=== PATIENT | male | born 1955 | race Caucasian/White ===

== ENCOUNTER 2024-03-21 20:36 | Inpatient (IN) ==
[2024-03-21 21:00] LABS: Basophils # (Auto) 0.01 K/mcL (0.00-0.30); Basophils % (Auto) 0.1 % (0.0-2.0); Eosinophils # (Auto) 0 K/mcL (0.00-0.70); Eosinophils % (Auto) 0 % (0.0-7.0); Hematocrit 38.4 % (40.1-51.0); Hemoglobin 12.2 g/dL (13.7-17.5); Lymphocytes # (Auto) 0.22 K/mcL (1.50-4.80); Lymphocytes % (Auto) 1.8 % (15.5-49.0); Mean Cell Volume 90.1 fL (80.0-100.0); Mean Corpuscular HGB Conc 31.8 g/dL (31.0-36.0); Monocytes # (Auto) 0.28 K/mcL (0.10-0.90); Monocytes % (Auto) 2.3 % (1.0-12.0); Neutrophils % (Auto) 95.5 % (38.0-78.0); Platelet Count 169 K/mcL (140-440); RBC 4.26 M/mcL (4.63-6.08); Red Cell Distribution Width 15.5 % (11.5-14.5)
[2024-03-21] MEDS: 0.9 % SODIUM CHLORIDE 1,000 ML IV ONE (21:07)
[2024-03-21] MEDS: ONDANSETRON 4 MG/2 ML VIAL IV ONE (21:07)
[2024-03-21] MEDS: ACETAMINOPHEN 1,000 MG/100 ML BAG IV ONE (21:16)
[2024-03-21] MEDS ORDERED: ONDANSETRON 4 MG/2 ML VIAL IV PRN (23:42)
[2024-03-21] MEDS ORDERED: ALBUTEROL SULFATE 2.5 MG/3 ML NEBULIZER NEB PRN (23:42)
[2024-03-22] MEDS: AZITHROMYCIN 500 MG in 0.9 % SODIUM CHLORIDE 250 ML IV ONE (00:07)
[2024-03-22] MEDS: OSELTAMIVIR PHOSPHATE 75 MG CAPSULE PO ONE (00:08)
[2024-03-22] MEDS: cefTRIAXone 2 GM in DEXTROSE 5% IN WATER 50 ML IV SCH (00:08)
[2024-03-22 00:29] LABS: Basophils # (Auto) 0 K/mcL (0.00-0.30); Basophils % (Auto) 0 % (0.0-2.0); Eosinophils # (Auto) 0 K/mcL (0.00-0.70); Eosinophils % (Auto) 0 % (0.0-7.0); Hemoglobin 11.8 g/dL (13.7-17.5); Lymphocytes # (Auto) 0.32 K/mcL (1.50-4.80); Lymphocytes % (Auto) 2.8 % (15.5-49.0); Mean Cell Volume 90.7 fL (80.0-100.0); Mean Corpuscular HGB Conc 31.9 g/dL (31.0-36.0); Mean Platelet Volume 11.3 fL (8.8-12.5); Monocytes # (Auto) 0.21 K/mcL (0.10-0.90); Monocytes % (Auto) 1.8 % (1.0-12.0); Neutrophils % (Auto) 95.2 % (38.0-78.0); Platelet Count 166 K/mcL (140-440); RBC 4.08 M/mcL (4.63-6.08); Red Cell Distribution Width 15.3 % (11.5-14.5); WBC 11.6 K/mcL (4.5-11.0)
[2024-03-22] MEDS ORDERED: IPRATROPIUM/ALBUTEROL 3 ML AMPUL.NEB NEB PRN (01:08)
[2024-03-22] MEDS: 0.9 % SODIUM CHLORIDE 1,000 ML IV SCH (01:40)
[2024-03-22] MEDS ORDERED: IPRATROPIUM/ALBUTEROL 3 ML AMPUL.NEB NEB SCH (03:00)
[2024-03-22] MEDS ORDERED: POLYETHYLENE GLYCOL 3350 17 GM PACKET PO PRN (08:08)
[2024-03-22] MEDS ORDERED: MAGNESIUM SULFATE 2 GM/50 ML BAG IV PRN (08:08)
[2024-03-22] MEDS ORDERED: METOCLOPRAMIDE 10 MG/2 ML VIAL IV PRN (08:08)
[2024-03-22] MEDS ORDERED: POTASSIUM CHLORIDE 40 MEQ in DEXTROSE 5% IN WATER 500 ML IV PRN (08:08)
[2024-03-22] MEDS ORDERED: ONDANSETRON 4 MG/2 ML VIAL IV PRN (08:08)
[2024-03-22] MEDS ORDERED: DEXTROSE 50% 50 ML VIAL IV PRN (08:10)
[2024-03-22] MEDS ORDERED: DEXTROSE 31 GM ORAL.SUSP PO PRN (08:10)
[2024-03-22] MEDS ORDERED: METOPROLOL TARTRATE 5 MG/5 ML VIAL IV PRN (08:10)
[2024-03-22 09:07] LABS: ALT/SGPT 678 U/L (<40); AST/SGOT 578 U/L (<40); Albumin 2.8 gm/dL (3.2-5.2); Albumin/Globulin Ratio 0.9 (1.0-2.3); Alkaline Phosphatase 75 U/L (39-117); Bilirubin,Direct 0.3 mg/dL (<0.3); Bilirubin,Total 0.5 mg/dL (0.1-1.0); Blood Urea Nitrogen 21 mg/dL (8-23); Calcium 8.8 mg/dL (8.6-10.4); Carbon Dioxide 25 mmol/L (22-30); Chloride 104 mmol/L (96-108); Globulin 3.1 gm/dL (2.2-3.7); Glomerular Filtration Rate 92; Glucose 93 mg/dL (70-105); Lactate Dehydrogenase 421 U/L (135-225); Phosphorous 2.8 mg/dL (2.5-4.5); Potassium 3.5 mmol/L (3.3-5.1); Sodium 140 mmol/L (133-145); Triglycerides 47 mg/dL (<150); Uric Acid 2.8 mg/dL (2.5-8.0)
[2024-03-22] MEDS: APIXABAN 5 MG TABLET PO SCH (09:09)
[2024-03-22] MEDS: OSELTAMIVIR PHOSPHATE 75 MG CAPSULE PO SCH (09:09)
[2024-03-22] MEDS: DILTIAZEM 180 MG CAP.XL.24H PO SCH (09:09)
[2024-03-22] MEDS: metroNIDAZOLE 500 MG/100 ML BAG IV SCH (09:10)
[2024-03-22] MEDS: DOCUSATE SODIUM 100 MG CAPSULE PO SCH (09:10)
[2024-03-22 09:19] LABS: INR 1.7 (0.9-1.1); Prothrombin Time 20.3 sec (11.9-14.5)
[2024-03-22] MEDS: AMIODARONE HCL 200 MG TABLET PO SCH (10:56)
[2024-03-22 11:14] LABS: Band Neutrophils % 37 % (0-10); Lymphocytes % 3 % (15-49); Monocytes % (Manual) 2 % (1-12); Platelet Estimate NORMAL (Normal); RBC Morphology NORMAL (Normal); Segmented Neutrophils % 58 % (38-78)
[2024-03-22 12:12] LABS: Hepatitis A Antibody IgM Non-Reactive (Non-Reactive); Hepatitis B Surface Antigen Negative (Negative); Hepatitis C Virus Antibody Non-Reactive (Non-Reactive)
[2024-03-22] MEDS: INSULIN LISPRO 1 UNIT/0.01 ML UNIT SQ SCH (12:22)
[2024-03-22] MEDS: 0.9 % SODIUM CHLORIDE 10 ML SYRINGE IV SCH (13:00)
[2024-03-22] MEDS: cefTRIAXone 1 GM VIAL IV SCH (15:10)
[2024-03-22] MEDS: AZITHROMYCIN 500 MG in 0.9 % SODIUM CHLORIDE 250 ML IV SCH (16:11)
[2024-03-22 17:12] LABS: Appearance,Urine Clear (Clear); Bacteria,Urine Few /hpf (0); Bilirubin,Urine Negative (Negative); Color,Urine Yellow; Glucose,Urine (UA) Negative (Negative); Ketones,Urine Negative (Negative); Leukocyte Esterase,Urine Negative /uL (Negative); Nitrate,Urine Negative (Negative); PH,Urine 5.5 (5.0-9.0); Protein,Urine 100 mg/dL (Negative); Urine Blood Small ery/mcL (Negative); Urine Granular Cast 5 /lph (0-0); Urine RBC 0 /hpf (0-3); Urine Squamous Epithelial Cell 0 /hpf (0-4); Urine WBC 2 /hpf (0-4); Urobilinogen,Urine Normal
[2024-03-22] MEDS ORDERED: SENNOSIDES 1 TABLET PO SCH (21:00)
[2024-03-22] MEDS: ATORVASTATIN 40 MG TABLET PO SCH (21:00)
[2024-03-23] MEDS: ACETAMINOPHEN 325 MG TABLET PO PRN (04:01)
[2024-03-23 06:16] LABS: Hematocrit 34.3 % (40.1-51.0); Mean Cell Volume 89.3 fL (80.0-100.0); Mean Corpuscular HGB Conc 32.1 g/dL (31.0-36.0); Mean Platelet Volume 11.6 fL (8.8-12.5); Platelet Count 140 K/mcL (140-440); RBC 3.84 M/mcL (4.63-6.08); Red Cell Distribution Width 15.3 % (11.5-14.5); WBC 5.5 K/mcL (4.5-11.0)
[2024-03-23 06:45] LABS: ALT/SGPT 422 U/L (<40); AST/SGOT 271 U/L (<40); Albumin 2.6 gm/dL (3.2-5.2); Albumin/Globulin Ratio 0.9 (1.0-2.3); Alkaline Phosphatase 65 U/L (39-117); Bilirubin,Direct 0.3 mg/dL (<0.3); Bilirubin,Total 0.5 mg/dL (0.1-1.0); Blood Urea Nitrogen 22 mg/dL (8-23); Calcium 8.4 mg/dL (8.6-10.4); Carbon Dioxide 25 mmol/L (22-30); Chloride 102 mmol/L (96-108); Globulin 2.8 gm/dL (2.2-3.7); Glomerular Filtration Rate 98; Glucose 92 mg/dL (70-105); Lactate Dehydrogenase 270 U/L (135-225); Phosphorous 2.1 mg/dL (2.5-4.5); Potassium 3.4 mmol/L (3.3-5.1); Sodium 138 mmol/L (133-145); Triglycerides 52 mg/dL (<150); Uric Acid 2.6 mg/dL (2.5-8.0)
[2024-03-23 06:57] LABS: Band Neutrophils % 22 % (0-10); Lymphocytes % 4 % (15-49); Monocytes % (Manual) 1 % (1-12); Platelet Estimate NORMAL (Normal); RBC Morphology NORMAL (Normal); Segmented Neutrophils % 73 % (38-78)
[2024-03-23 07:09] LABS: INR 1.6 (0.9-1.1); Prothrombin Time 20.3 sec (11.9-14.5)
[2024-03-24 06:44] LABS: ALT/SGPT 299 U/L (<40); AST/SGOT 153 U/L (<40); Albumin 2.6 gm/dL (3.2-5.2); Albumin/Globulin Ratio 0.9 (1.0-2.3); Alkaline Phosphatase 70 U/L (39-117); Bilirubin,Direct 0.3 mg/dL (<0.3); Bilirubin,Total 0.5 mg/dL (0.1-1.0); Blood Urea Nitrogen 22 mg/dL (8-23); Calcium 8.6 mg/dL (8.6-10.4); Carbon Dioxide 26 mmol/L (22-30); Chloride 101 mmol/L (96-108); Globulin 2.8 gm/dL (2.2-3.7); Glomerular Filtration Rate 92; Glucose 115 mg/dL (70-105); Lactate Dehydrogenase 247 U/L (135-225); Phosphorous 2.2 mg/dL (2.5-4.5); Potassium 3.3 mmol/L (3.3-5.1); Sodium 136 mmol/L (133-145); Triglycerides 45 mg/dL (<150); Uric Acid 2.6 mg/dL (2.5-8.0)
[2024-03-24 08:33] LABS: Hematocrit 33.9 % (40.1-51.0); Hemoglobin 10.6 g/dL (13.7-17.5); Mean Cell Volume 92.1 fL (80.0-100.0); Mean Corpuscular HGB Conc 31.3 g/dL (31.0-36.0); Mean Platelet Volume 12.9 fL (8.8-12.5); Platelet Count 146 K/mcL (140-440); RBC 3.68 M/mcL (4.63-6.08); Red Cell Distribution Width 15.5 % (11.5-14.5); WBC 4.3 K/mcL (4.5-11.0)
[2024-03-24] MEDS: POTASSIUM CHLORIDE 20 MEQ TABLET PO PRN ×2 (08:49→09:41)
[2024-03-24 09:02] LABS: Band Neutrophils % 3 % (0-10); Lymphocytes % 7 % (15-49); Monocytes % (Manual) 5 % (1-12); Platelet Estimate NORMAL (Normal); RBC Morphology NORMAL (Normal); Segmented Neutrophils % 85 % (38-78)
[2024-03-24] MEDS ORDERED: POTASSIUM CHLORIDE 20 MEQ/15 ML ML PO PRN (09:48)
[2024-03-24] MEDS: NEUTRA PHOS 1 PACKET PO SCH (10:56)
[2024-03-26 13:27] LABS: ALT/SGPT 811 U/L (<40); AST/SGOT 831 U/L (<40); Albumin 3.2 gm/dL (3.2-5.2); Albumin/Globulin Ratio 1.1 (1.0-2.3); Alkaline Phosphatase 82 U/L (39-117); Bilirubin,Total 0.5 mg/dL (0.1-1.0); Blood Urea Nitrogen 30 mg/dL (8-23); Carbon Dioxide 23 mmol/L (22-30); Chloride 100 mmol/L (96-108); Glomerular Filtration Rate 62; Glucose 161 mg/dL (70-105); Potassium 3.6 mmol/L (3.3-5.1); Sodium 137 mmol/L (133-145)
== END 2024-03-25 14:30 | disposition home or self-care (01) | DRG 871 ==
LOC: EDACCT# → ED 20:36 → MEDSUR 03-22 00:50
PROVIDERS: ADMIT Internal Medicine; ATTEND Internal Medicine